=== PATIENT | male | born 1965 | race Caucasian/White ===

== ENCOUNTER → 2016-10-02 | Outpatient (CLI) | payer OTHER ==
[2016-10-02 09:13] LABS: BASOPHIL % 0.3 % (0.0-0.2); BILIRUBIN,URINE NEGATIVE (NEGATIVE); EOSINOPHIL # 0.3 10^3/uL (0.0-0.2); EOSINOPHIL % 3.1 % (0.0-5.0); HEMATOCRIT 42.6 % (37.0-53.0); HEMOGLOBIN 15.1 g/dL (13.9-16.3); LYMPHOCYTES # 2.5 10^3/uL (1.0-4.8); LYMPHOCYTES % 31.4 % (24.0-44.0); MEAN CELL HGB 29.5 pg (26-34); MEAN CELL HGB CONCENTRATION 35.4 g/dL (33-37); MEAN CORP VOLUME 83.2 fL (78-100); MEAN PLATELET VOLUME 8.8 fL (7.8-11.0); MONOCYTES # 0.5 10^3/uL (0.3-0.8); MONOCYTES % 6.3 % (5.0-12.0); NEUTROPHIL # 4.7 10^3/uL (1.8-7.7); NEUTROPHILS % 58.6 % (41.0-85.0); RED CELL DISTRIBUTION WIDTH 12.9 % (11.5-14.5); UROBILINOGEN,URINE NORMAL (NEGATIVE)
[2016-10-02 09:16] LABS: APPEARANCE,URINE CLEAR (CLEAR); UA COLOR YELLOW (YELLOW)
[2016-10-02 09:42] LABS: CALCIUM 9.1 mg/dL (8.4-10.5); CARBON DIOXIDE 28.6 mmol/L (20.0-32)
== END | disposition home or self-care (01) ==
LOC: LAB 08:40
PROVIDERS: ATTEND Internal Medicine
DX: Z13.220 Encounter for screening for lipoid disorders (principal); Z11.4 Encounter for screening for human immunodeficiency virus [HIV]; Z13.29 Encounter for screening for other suspected endocrine disorder; Z72.89 Other problems related to lifestyle; Z87.898 Personal history of other specified conditions
CPT/HCPCS: 36415; 80053; 80061; 81002; 82043; 83036; 85025; 86803

== ENCOUNTER → 2016-10-09 | Outpatient (CLI) | payer OTHER | END | disposition home or self-care (01) | LOC: LAB 11:26 | PROVIDERS: ATTEND Internal Medicine | DX: Z53.21 Procedure and treatment not carried out due to patient leaving prior to being seen by health care provider (principal) ==

== ENCOUNTER 2018-06-25 18:13 | Inpatient (IN) | payer OTHER ==
[~2018-06-25] VITALS: Ht 185.4 cm; Wt 155.1 kg
[2018-06-25 18:45] VITALS: BP 145/104
--- NOTE | 2018-06-25 20:02 | ER.PDOC ---
General Chief Complaint: Requesting Medical Care Stated Complaint: ABD PAIN Time seen by MD: 20:02 Source: patient Exam Limitations: no limitations History of Present Illness Initial Comments 52 Y/O MALE WITH HX OF 24 HRS OF ABD PAIN NOW IN THE RLQ, NO FEVER, NO N/V, NO PAST SAME PAIN , OTHER THEN SIMILAR EPISODE LAST WEEK. LASTED X 5-6 HRS. NO CHEST PAIN, NO FEVER, NO CHANGE IN BOWELS. Timing/Duration: 24 hours Severity/Quality: moderate Radiation: no radiation Associated Symptoms: nausea/vomiting Exacerbated by: nothing Relieved By: nothing Allergies: Coded Allergies: No Known Allergies (Unverified , 06/25/18) Vital Signs First Vital Signs Date Time Temp Pulse Resp B/P (MAP) Pulse Ox O2 Delivery O2 Flow Rate FiO2 06/25/18 20:01 98.4 87 20 98.4 Last Vital Signs Date Time Temp Pulse Resp B/P (MAP) Pulse Ox O2 Delivery O2 Flow Rate FiO2 06/25/18 20:01 98.4 87 20 98.4 Past Medical History Medical History: GERD, hypertension, other Surgical History: tonsillectomy Family History Significant Family History: no pertinent family hx Social History Smoking: non-smoker Alcohol Use: occassionally Drug Use: none Reviewed Nursing Reviewed: Vital Signs, Abn. Noted, Nursing Assessment Constitutional: no symptoms reported EENTM: no symptoms reported Respiratory: no symptoms reported Cardiovascular: no symptoms reported Gastrointestinal: abdominal pain Genitourinary: no symptoms reported Musculoskeletal: no symptoms reported Skin: no symptoms reported Psychiatric/Neurological: no symptoms reported Endocrine: no symptoms reported Hematologic/Lymphatic: no symptoms reported Physical Exam General Appearance: WD/WN, Mild Distress HEENT: PERRL/EOMI, Normal ENT Inspection, TMs Normal, Pharynx Normal Neck: Non-Tender, Full Range of Motion, Supple, Normal Inspection Respiratory: chest non-tender, lungs clear, normal breath sounds, no respiratory distress, no accessory muscle use Cardiovascular: Normal Peripheral Pulses, Regular Rate, Rhythm, No Edema, No Gallop, No JVD, No Murmur Gastrointestinal: Normal Bowel Sounds, No Organomegaly, Rebound, Tenderness, McBurneys point tender Back: Normal Inspection, No CVA Tenderness, No Vertebral Tenderness Extremities: Normal Range of Motion, Non-Tender, Normal Inspection, No Pedal Edema, No Calf Tenderness, Normal Capillary Refill, Pelvis Stable Neurologic/Psychiatric: online journalist II-XII NML as Tested, No Motor/Sensory Deficits, Alert, Normal Mood/Affect, Oriented x 3 Skin: Normal Color, Warm/Dry Lymphatic: No Adenopathy Results/Orders Results/Orders Vital Signs Date Time Temp Pulse Resp B/P (MAP) Pulse Ox O2 Delivery O2 Flow Rate FiO2 06/25/18 20:01 98.4 87 20 98.4 EKG/XRAY/CT/US EKG: NSR EKG Comments: RATE-76, NL EKG Consult/PCP Time Consult/PCP Called: 21:57 Consult/PCP: DR BURNS/DR DE ANDA Reason/Comments: DR BURNS WILL SEE PATIENT IN ED. Course Vitals & review Data Vital Sign - Last 24 Hours 06/25/18 20:01 Temp 98.4 98.4 Pulse 87 Resp 20 Sepsis Infection Criteria Pres: None Departure Time of Disposition: 22:24 Disposition: 09 ADMITTED INPATIENT Impression: Primary Impression: Appendicitis Additional Impression: Abdominal pain Condition: Stable Referrals: COLLEEN PHILLIPS (PCP) PRIMARY CARE PROVIDER Duration or Time Spent with Pa: 15 MIN Problem Qualifiers TAY LATIF DO Jun 25, 2018 20:02
[2018-06-25] MEDS ORDERED: NS 1000ML 1,000 ML IV STA (20:03)
[2018-06-25] MEDS ORDERED: ZOFRAN IV STA (20:03)
[2018-06-25] MEDS ORDERED: DURAMORPH IV STA (20:03)
[2018-06-25 20:20] LABS: BASOPHIL % 0.2 % (0.0-0.2); EOSINOPHIL # 0.2 10^3/uL (0.0-0.2); EOSINOPHIL % 2.5 % (0.0-5.0); HEMOGLOBIN 14.4 g/dL (13.9-16.3); LYMPHOCYTES # 3.1 10^3/uL (1.0-4.8); LYMPHOCYTES % 32.1 % (24.0-44.0); MEAN CELL HGB 29.9 pg (26-34); MEAN CELL HGB CONCENTRATION 35.9 g/dL (33-37); MEAN CORP VOLUME 83.4 fL (78-100); MONOCYTES # 0.6 10^3/uL (0.3-0.8); NEUTROPHIL # 5.6 10^3/uL (1.8-7.7); NEUTROPHILS % 58.9 % (41.0-85.0); RED CELL DISTRIBUTION WIDTH 12.7 % (11.5-14.5); WHITE BLOOD CELL 9.5 10^3/uL (4.5-11.0)
[2018-06-25 20:22] LABS: BILIRUBIN,URINE NEGATIVE (NEGATIVE); UROBILINOGEN,URINE NORMAL (NEGATIVE)
[2018-06-25 20:23] LABS: APPEARANCE,URINE CLEAR (CLEAR); UA COLOR YELLOW (YELLOW)
[2018-06-25 20:37] LABS: CALCIUM 8.9 mg/dL (8.4-10.5); CARBON DIOXIDE 25.4 mmol/L (20.0-32)
[2018-06-25] MEDS ORDERED: NS 1000ML 1,000 ML ONE ×2 (20:57→22:57)
--- NOTE | 2018-06-25 21:05 | NUR ---
MEDS PATIENT REFUSES THE NEED FOR MORPHINE AND ZOFRAN AT THIS TIME PAIN IS TOLERABLE AT REST AND DENIES NAUSEA.
--- NOTE | 2018-06-25 21:38 | DIREP ---
PROCEDURE:CT ABDOMEN/PELVIS W/ CONTRAST COMPARISON:[facility], CT, CT ABD/PELVIS W/ CONTRAST, 11/11/2014, 10:47 AM. INDICATIONS:RLQ ABD PAIN TECHNIQUE:Axial images were created through the abdomen and pelvis with non-ionic intravenous contrast material. No oral contrast was administered. Sagittal and coronal reconstructions were performed from source images. FINDINGS: LOWER CHEST:Mild dependent atelectasis. LIVER: Lobular fluid density lesion predominantly in segment 5 measures 4.5 cm. BILIARY: Gallbladder is unremarkable, no intra or extrahepatic biliary dilation. PANCREAS: Unremarkable. SPLEEN: Normal, nonenlarged. KIDNEYS: No renal mass. No hydronephrosis or collecting system stone identified. ADRENALS: Normal. AORTA/VASCULAR: Normal. No aneurysm. RETROPERITONEUM: No adenopathy or mass. BOWEL/MESENTERY: Suspect small hiatal hernia. No evidence of obstruction. Appendix is mildly dilated in transverse diameter measuring 0.9 cm. There is minimal periappendiceal stranding which is suspicious for acute appendicitis. Notably, the appendix measured 0.4 cm transfer on previous CT. ABDOMINAL WALL: Normal. No mass or hernia. URINARY BLADDER: Inherently limited evaluation of the wall; unremarkable for level of distension. PELVIS: Prostatic tissue present. No adenopathy. BONES: No bony lesion or fracture. OTHER: No free air or fluid. CONCLUSION: 1. Findings concerning for early acute appendicitis. Dictated by: Tanvi Gonzalez MD on 06/25/2018 at 09:25 PM
--- NOTE | 2018-06-25 21:51 | NUR ---
Dr. Jared Argueta on phone with Dr. Coleman
[2018-06-25] MEDS ORDERED: NS 1000ML 1,000 ML IV ONE (22:00)
--- NOTE | 2018-06-25 22:17 | PCM.EKG ---
[facility] Test Date: 2018-06-25 Test Time: 22:15:05 Pat Name: SUKHI WOLFF Department: Room: Gender: M Bridges Supervisor: SOFIA : 1965 Requested By: ERICH ARGUETA Order Number: [id number] Reading MD: Erich Argueta Measurements Intervals [place] Rate: 76 P: 65 AK: 206 QRS: 16 QRSD: 80 T: 32 QT: 384 QTc: 432 Interpretive Statements Normal sinus rhythm with sinus arrhythmia Normal ECG No previous ECG available for comparison Electronically Signed On 06-26-2018 3:25:01 CDT by Erich Argueta Please click the below link to view image of tracing.
--- NOTE | 2018-06-25 22:25 | NUR ---
DR. DR. BURNS AT BEDSIDE.
[2018-06-25] MEDS ORDERED: LOVENOX SQ SCH (22:30)
[2018-06-25] MEDS ORDERED: SODIUM CHLORIDE IRR BAG 1,000 ML ONE (22:35)
[2018-06-25] MEDS ORDERED: ISOTON GENTAMICIN 80 MG/50 ML 50 ML IV ONE (22:35)
[2018-06-25] MEDS ORDERED: SENSORCAINE-MPF 0.25% VIAL ONE (22:36)
[2018-06-25] MEDS ORDERED: SODIUM CHLORIDE IR ONE (22:36)
[2018-06-25] MEDS ORDERED: LOVENOX SQ ONE (22:42)
[2018-06-25] MEDS ORDERED: MEFOXIN ONE (22:51)
[2018-06-25] MEDS ORDERED: DECADRON ONE (22:57)
[2018-06-25] MEDS ORDERED: NEOSTIGMINE ONE (22:58)
[2018-06-25] MEDS ORDERED: DILAUDID ONE (22:58)
[2018-06-25] MEDS ORDERED: TORADOL ONE (22:58)
[2018-06-25] MEDS ORDERED: ZEMURON IV ONE (22:58)
[2018-06-25] MEDS ORDERED: LIDOCAINE 2% VIAL ONE (22:58)
[2018-06-25] MEDS ORDERED: ZOFRAN ONE (22:58)
[2018-06-25] MEDS ORDERED: DIPRIVAN IV ONE (22:59)
[2018-06-25] MEDS ORDERED: QUELICIN ONE (22:59)
[2018-06-25] MEDS ORDERED: SUBLIMAZE ONE (22:59)
[2018-06-25] MEDS ORDERED: NS 250ML 250 ML IV ONE (23:02)
[2018-06-25 23:15] VITALS: BP 149/96
[2018-06-25] MEDS: MEFOXIN 2 GM in NS 100ML 100 ML IV SCH (23:15)
--- NOTE | 2018-06-25 23:15 | NUR ---
SCD SCD given to surgical crew to be applied. Patient wanted to walk to surgery
--- NOTE | 2018-06-25 23:15 | NUR ---
DEPART PATIENT TO SURG. AT THIS TIME
[2018-06-25] MEDS ORDERED: LACTATED RINGERS 1,000 ML IV SCH (23:30)
[2018-06-26] VITALS (11 sets, daily range): BP systolic 118–137; BP diastolic 63–82
[2018-06-26] MEDS ORDERED: DIPRIVAN IV ONE (00:54)
[2018-06-26] MEDS ORDERED: MORPHINE SULFATE IV PRN (01:00)
[2018-06-26] MEDS ORDERED: ZOFRAN IV PRN ×2 (01:00)
[2018-06-26] MEDS ORDERED: GENASYME PO PRN (01:00)
[2018-06-26] MEDS ORDERED: PHENERGAN 12.5 MG in HNS 50ML 50 ML IV PRN (01:00)
[2018-06-26] MEDS ORDERED: DILAUDID IV PRN ×2 (01:00)
[2018-06-26] MEDS ORDERED: TORADOL IV PRN (01:00)
[2018-06-26] MEDS: MORPHINE SULFATE IV PRN ×2 (01:01→11:51)
--- NOTE | 2018-06-26 02:00 | NUR ---
pt up to ambulate in mora ambulate 1/2 the length of the unit x1
[2018-06-26] MEDS ORDERED: NS 100ML 100 ML IV ONE (02:19)
[2018-06-26] MEDS ORDERED: MEFOXIN ONE (02:19)
[2018-06-26] MEDS: LACTATED RINGERS 1,000 ML IV SCH ×3 (02:21→11:16)
--- NOTE | 2018-06-26 03:37 | CNH ---
DATE OF CONSULTATION: CHIEF COMPLAINT: Abdominal pain. HISTORY OF PRESENT ILLNESS: This is a 52-year-old male who reports he had intermittent abdominal pain previously with significant onset yesterday, was initially periumbilical, now some right lower quadrant. He reports since he has come to the ER, he has had nausea without vomiting and chills. His reports he had some low-grade fevers at home. He has had a CT scan that is positive for appendicitis. He denies any sick contacts. He denies any related change in bowel habits. PAST MEDICAL HISTORY: Includes hypertension, Kemp esophagitis and allergies. PAST SURGICAL HISTORY: Includes left hydrocelectomy, tonsils as a child, oral surgery. ALLERGIES: No known drug allergies. HOME MEDICATIONS: Lisinopril, Nexium, and Zyrtec. SOCIAL HISTORY: Negative for tobacco or illicit drug use. Positive for occasional alcohol consumption. He reports he had a flu shot in last year. FAMILY HISTORY: Mother living at age 76. He reports she has multiple illnesses. Father living at age 82, has coronary artery disease. REVIEW OF SYSTEMS: CONSTITUTIONAL: He reports he has got positive history of seasonal allergies. ENDOCRINE: He denies thyroid disease or diabetes. CARDIOVASCULAR: He denies chest pain or trouble breathing. PULMONARY: Does reports he had a slight cough recently with sinus drainage. ABDOMEN: As per HPI. NEUROLOGIC: Denies any history of loss of consciousness, however. He reports in the , he had seizures that stopped in 1996 after he had a complete workup at an outside facility, said none since that time. GENITOURINARY: He denies dysuria, frequency, urgency or nocturia. MUSCULOSKELETAL: He denies any stiffness or swelling, however, he does have some knee pain and hands. PSYCHIATRIC: He denies depression, stress or anxiety. PHYSICAL EXAMINATION: GENERAL: He is alert and oriented, appropriate, 52-year-old male, in no acute distress. He is very cooperative to exam. VITAL SIGNS: Show temperature 98.4, pulse 87, respiratory rate 20, last reported blood pressure in the electronic medical record is 145/104. He stated height to me is 6 feet 1 inch. His stated weight is 320 pounds. Per electronic medical record, his BMI is 43.5. HEENT: Normocephalic, atraumatic with pink mucous membranes. NECK: Supple and soft. Trachea is midline. No JVD, no thyromegaly. HEART: Has regular rate and rhythm. LUNGS: Clear anteriorly bilaterally. ABDOMEN: Bowel sounds are positive, soft. He has a plus/minus Rovsing's. He has focal rebound in the right lower quadrant. EXTREMITIES: Show positive radial pulse bilaterally. Positive dorsal pedal pulse bilaterally. NEUROLOGIC: He has no acute findings. Cranial nerves 2 through 12 are grossly intact. SKIN AND INTEGUMENT: Warm and dry. LABORATORY STUDIES: Show white count 9.5, hemoglobin 14.4, and platelet count 210. Chemistry shows BUN of 20, creatinine 0.90. His electrolytes were essentially normal. Coagulation studies show PT 9.8, PTT 25.7. Urine shows specific gravity 1.020, essentially otherwise negative. CT scan shows changes consistent with a large and inflamed appendix. SURGICAL ASSESSMENT: 1. Right lower quadrant pain with probable appendicitis. 2. Prerenal azotemia, probable dehydration. 3. Morbid obesity, BMI is 43.5. PLAN: 1. The patient is seen and examined. Chart is reviewed. 2. I have discussed with the patient the risks, benefits, alternatives including nonoperative management and he has elected for surgical intervention. We will plan for laparoscopic appendectomy and hopes to speed his recovery. 3. The patient is advised, he will stay overnight for IV antibiotics. Yoni Coleman DO DR: RASHEED/abebe JOB# [id number] CC: Eloy Verde M.D.
--- NOTE | 2018-06-26 04:24 | OPH ---
DATE OF SURGERY: PREOPERATIVE DIAGNOSIS: Right lower quadrant pain, possible appendicitis. POSTOPERATIVE DIAGNOSIS: Acute appendicitis with localized peritonitis. SURGEON: Yoni Coleman DO FOUNDRY SUPERVISOR: OR staff. ANESTHESIA: General by Nasir Liu CRNA plus local used on the field. PROCEDURE PERFORMED: Laparoscopic-assisted appendectomy. SPECIMENS: Appendix to path. ESTIMATED BLOOD LOSS: 11 mL. COUNTS: At the completion of the case, counts were correct per OR staff. DESCRIPTION OF PROCEDURE: The patient is a very pleasant 52-year-old male, known from previous evaluation. Prior to procedure, informed consent was obtained. At the time of procedure, he was taken to the operative suite and placed in supine position. After time-out was completed, general anesthesia was obtained. His abdomen was prepped and draped in normal fashion. Local was used to anesthetize the supraumbilical midline. Incision was created, and a 5-mm trocar was introduced into the abdomen with Endo camera visualization. Once in the abdomen, pneumoperitoneum was induced to the level of 14 mmHg. With camera visualization, two 5-mm trocars were placed in the left lower quadrant, one superiorly and one inferiorly. Attention was directed towards the right lower quadrant. Tip of the appendix appeared normal. The base of the appendix was difficult to identify initially. The mid body of the appendix appeared inflamed and enlarged. The appendix was lifted with mobilization of the viscera to allow exposure. The mesoappendix was divided using a Harmonic scalpel. In the midportion of the appendix, there were noted to be significant lateral peritoneal attachments, which were associatedly inflamed with the appendix and the peritoneal attachments were divided using the Harmonic scalpel. Once the appendix was completely mobilized to its base with good hemostasis noted, two PDS Endoloops were placed on the base of the appendix. The appendix was divided and retained with a grasper. EndoCatch bag was passed into the superior incision, and the appendix was removed. Once the appendix was out, the trocars were reinserted. The area of concern was copiously irrigated, then final irrigation and suctioned. A drain was passed into the inferior trocar site, placed through the pelvis to the right lower quadrant. There was limited visualization of the deep pelvis due to what appeared to be a filling bladder. Once the drain was in its appropriate location, it was secured to point of exit with a nylon suture. Camera was placed, and the remaining left-sided trocar and the supraumbilical trocar was removed. The fascial defect was repaired with a 0 Vicryl using the Jose Guadalupe-Belen device. After the repair was completed, the pneumoperitoneum was reduced; and the remaining trocar was removed with camera visualization through the trocar tract. All 3 trocar sites were localized with a combination of Marcaine and Exparel. Skin incisions were closed with 4-0 Monocryl. The patient was cleaned. Steri-Strips and dressings were applied. Drapes were removed. The patient tolerated this procedure well. There were no acute complications noted at this time. He is currently in the recovery room. He has been awakened by Department of Anesthesia. Yoni Coleman DO DR: RASHEED/abebe JOB# [id number] CC: Eloy Verde M.D.
--- NOTE | 2018-06-26 05:00 | NUR ---
pt up to ambulate in the mora, ambulate 1/2 the length of the unit x1
[2018-06-26] MEDS: MEFOXIN 2 GM in NS 100ML 100 ML IV SCH ×2 (05:21→14:42)
--- NOTE | 2018-06-26 06:23 | NUR ---
REPORT TO NICKY CORNELL
--- NOTE | 2018-06-26 08:35 | NUR ---
DR GOODMAN AT THE BEDSIDE.
[2018-06-26] MEDS ORDERED: PROTONIX IV IV SCH (09:00)
--- NOTE | 2018-06-26 10:07 | NUR ---
DISCHARGE PLAN CM VISITED WITH PATIENT AND CONCERNING PATIENTS DISCHARGE PLAN AND NEED. PATIENT STATED HE LIVES @ HOME WITH HIS AND HE IS INDEPENDENT ON ADLS. PATIENT DOES NOT HAVE DME IN THE HOME OR HAVE A NEED FOR DME. 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 CM WILL CONTINUE TO FOLLOW PATIENT FOR ANY FURTHER DISCHARGE NEEDS. CURRENT GOAL FOR PATIENT IS TO RETURN BACK HOME WITH FAMILY TO ROUTINE CARE UPON DISCHARGE.
[2018-06-26] MEDS: NORCO 5MG PO PRN ×2 (10:08→16:18)
[2018-06-26 11:10] LABS: EOSINOPHIL % 0.1 % (0.0-5.0); HEMOGLOBIN 14.1 g/dL (13.9-16.3); LYMPHOCYTES # 1.1 10^3/uL (1.0-4.8); LYMPHOCYTES % 11.1 % (24.0-44.0); MEAN CELL HGB 29.9 pg (26-34); MEAN CELL HGB CONCENTRATION 36.3 g/dL (33-37); MEAN CORP VOLUME 82.2 fL (78-100); MEAN PLATELET VOLUME 8.8 fL (7.8-11.0); MONOCYTES # 0.2 10^3/uL (0.3-0.8); MONOCYTES % 2.1 % (5.0-12.0); NEUTROPHIL # 8.7 10^3/uL (1.8-7.7); NEUTROPHILS % 86.4 % (41.0-85.0); PLATELET COUNT 224 10^3/uL (150-400); RED CELL DISTRIBUTION WIDTH 12.2 % (11.5-14.5); WHITE BLOOD CELL 10.1 10^3/uL (4.5-11.0)
[2018-06-26 11:25] LABS: CALCIUM 8.6 mg/dL (8.4-10.5); CARBON DIOXIDE 24.5 mmol/L (20.0-32)
[2018-06-26] MEDS ORDERED: EXPAREL 266 MG/20 ML VIAL IJ ONE (12:21)
[2018-06-26] MEDS ORDERED: AUGMENTIN 875-125 TABLET PO STA (14:45)
--- NOTE | 2018-06-26 16:51 | PCM.HP ---
HISTORY & PHYSICAL HISTORY & PHYSICAL DATE OF ADMISSION: CHIEF COMPLAINT: 52 yo male comes in with 24 hours of umbilical abdominal pain that moved to the RLQ. Nausea but no vomiting. Taken to OR last night by Dr. Coleman. Doing very well post/op currently. H&P # [id number] HISTORY OF PRESENT ILLNESS: ALLERGIES: CURRENT MEDICATIONS: PAST MEDICAL HISTORY: SOCIAL HISTORY: FAMILY HISTORY: REVIEW OF SYSTEMS: PHYSICAL EXAMINATION: GENERAL: VITAL SIGNS: HEENT: NECK: LUNGS: HEART: ABDOMEN: EXTREMITIES: NEUROLOGIC: LABORATORY DATA: IMPRESSION: CARE PLAN: WOO GOODMAN MD Jun 26, 2018 16:51
--- NOTE | 2018-06-26 17:00 | NUR ---
DISCHARGED Pt DISCHARGED TO HOME FROM THE HOSPITAL, EDUCATED Pt AND SPOUSE ON DISCHARGE PACKET, SS OF WOUND INFECTION, PIC TAKEN, Pt DISCHARGE WITH ALEX DRAIN PER DR BURNS'S ORDER.IV DC. ASSISTED PT IN WC TO MAIN EXIT BY NURSE BETHANY RUIZ ACCOMPANIED BY Pt'S SPOUSE.
--- NOTE | 2018-06-27 03:37 | HPH ---
ADMIT DATE: 06/25/2018 CHIEF COMPLAINT: Abdominal pain. HISTORY OF PRESENT ILLNESS: This is a 52-year-old male with the past medical history significant for hypertension, GERD and Kemp's esophagus, who presents to the Emergency Department today with complaints of 24 hours of abdominal pain. He states the pain started fairly suddenly around his navel and it was crampy in nature. It was omnipresent, although would vary in intensity. The worst it got was 8/10 and this lasted for a couple of hours and then the pain slowly began radiating to the right lower quadrant. The patient denies any vomiting, but did have nausea. He denies any changes with his bowels. There were no alleviating factors. He had difficulty getting in a comfortable position. He did not have fever in so far as he was checking his temperature, but he did felt chills at home. He did not have much appetite over the last several hours and his pain became progressive, which necessitated his visit to the Emergency Department. PAST MEDICAL HISTORY: 1. Hypertension. 2. GERD. 3. Kemp's esophagus. 4. Obesity. 5. Allergic rhinitis. MEDICATIONS: See admit medication reconciliation form. ALLERGIES: No known drug allergies. PAST SURGICAL HISTORY: 1. Left hemicolectomy. 2. Tonsillectomy. SOCIAL HISTORY: Tobacco, recreational drugs -- none. Alcohol --social. The patient lives in [place] with his family. FAMILY HISTORY: Mother alive at age 76 with multiple medical problems. Father alive at 82 with coronary artery disease. REVIEW OF SYSTEMS: GENERAL: No weakness, fatigue, malaise, subjective fever. CARDIAC: Denies chest pain, orthopnea, PND or palpitations. RESPIRATORY: Denies cough, congestion, shortness of breath. GASTROINTESTINAL: Positive for nausea and abdominal pain as above. No constipation or diarrhea. No vomiting. GENITOURINARY: Denies dysuria, frequency, hematuria or nocturia. HEMATOLOGIC: No easy bleeding or bruising. ENDOCRINE: No recent weight loss or weight gain. NEUROLOGIC: Denies headache, paresthesias or dizziness. MUSCULOSKELETAL: No complaints of bones, muscles, or joints. DERMATOLOGIC: No complaints of skin lesions or rashes. PSYCHIATRIC: Denies depression or anxiety. PHYSICAL EXAMINATION: VITAL SIGNS: Temperature 98.4, pulse 87, respirations 20, blood pressure 145/104, pulse oximeter 95% on room air. GENERAL: This is an obese male, in no acute distress. HEENT: Atraumatic, normocephalic. Sclerae are clear and anicteric. NECK: Soft, supple, normal range of motion. No tenderness, bruits, goiter, mass or adenopathy. LUNGS: Clear to auscultation bilaterally. HEART: Regular rate and rhythm without murmurs, S3 or S4. ABDOMEN: Distended, but soft and nontender other than surgical sites. Surgical wounds are clean, dressed and dry. Positive bowel sounds. EXTREMITIES: Warm and well perfused without evidence of edema, cyanosis or clubbing. NEUROLOGIC: Cranial nerves 2-12 are grossly intact and symmetric. SKIN: Intact. LABORATORY DATA: WBC 10.1, hemoglobin 14.1, hematocrit 38.8, platelets 224, neutrophils 86.4%. Sodium 136, potassium 4.4, chloride 103, CO2 of 24.5, BUN 15, creatinine 0.95, glucose 129. Lipase 191, albumin 3.7, total protein 7.3, ALT 11, AST 11. PT 9.8, PTT 25.7. Urinalysis negative. CT abdomen and pelvis -- "findings concerning for early acute appendicitis." IMPRESSION: 1. Right lower quadrant abdominal pain. 2. Acute appendicitis. 3. Hypertension. 4. Gastroesophageal reflux disease. 5. Kemp's esophagus. 6. Prerenal azotemia. 7. Obesity. PLAN: 1. The patient will be admitted to [facility] for further evaluation and management. 2. The patient is now several hours postop and doing well. Still not passing gas. Pain seems to be well controlled on current pain regimen. Resume home medications. 3. Increase out of bed and ambulation as well as incentive spirometer. 4. Advance diet per Dr. Coleman's recommendations. hSiva Wei MD DR: JHOAN/abebe JOB# [id number]
--- NOTE | 2018-06-27 04:39 | DSH ---
DATE OF DISCHARGE: 06/26/2018 SERVICE: Hospital service by Dr. Verde. CONSULTANTS: Surgery, Dr. Yoni Coleman for Surgery. ADMITTING DIAGNOSES: 1. Acute right lower quadrant abdominal pain. 2. History of hypertension. 3. History of reflux. DISCHARGE DIAGNOSES: 1. Acute appendicitis with focal peritonitis. 2. History of hypertension. 3. History of reflux disease. 4. Morbid obesity, BMI of 45. ADMISSION STATUS: A 52-year-old male who had 1-2 days of abdominal pain was seen in the urgent care center, referred to the ER. He had a CAT scan positive with a convicting exam and he had surgery. The remainder of his history and physical is available in the consults and H and P. HOSPITAL COURSE: The patient was emergently taken for laparoscopic appendectomy, which he tolerated well. He came to the floor with IV fluid, started on diet and had drain. Postoperatively, he became afebrile, tolerated diet, was able to be discharged home. DISCHARGE MEDICATIONS: 1. Augmentin 875 one p.o. b.i.d. x 7 days. 2. Tylenol No. 3 one p.o. q. 6 hours p.r.n. for pain, #20. 3. Tramadol 50 mg 1 p.o. q. 6 hours p.r.n. pain, #24. 4. Promethazine 12.5 mg 1 p.o. q. 8 hours p.r.n. for nausea and vomiting. He was given 12. He is advised to resume his home meds including lisinopril, Nexium [id number] and Zyrtec. Yoni Coleman DO DR: RASHEED/abebe JOB# [id number] CC: Eloy Gee MD MTDNarinder
== END 2018-06-26 17:20 | disposition home or self-care (01) | DRG 342 ==
LOC: ER 18:13 → CMPBEDREQ 23:19 → MS 23:27 → EDPENDDISTM 06-26 17:00 → EDPENDDISDT 06-26 17:00
PROVIDERS: ADMIT Family Medicine; ATTEND Family Medicine
PROC: 0DTJ4ZZ Resection of Appendix, Percutaneous Endoscopic Approach (ICD-10-PCS; principal; 2018-06-26)
DX: K35.30 Acute appendicitis with localized peritonitis, without perforation or gangrene (principal); Z68.42 Body mass index [BMI] 45.0-49.9, adult; E66.01 Morbid (severe) obesity due to excess calories; I10 Essential (primary) hypertension; K21.9 Gastro-esophageal reflux disease without esophagitis; K22.70 Barrett's esophagus without dysplasia; Z82.49 Family history of ischemic heart disease and other diseases of the circulatory system; Z90.49 Acquired absence of other specified parts of digestive tract
CPT/HCPCS: 36415; 74177; 80053; 81002; 83690; 85025; 85610; 85730; 88302; 93005; 99285; A4217; C9113; G0378; J0330; J1100; J1170; J1650; J1885; J2001; J2270; J2405; J2550; J2710; J3010; J3490; J7030; J7050; J7120; Q9965; C9290; J0694

== ENCOUNTER → 2020-03-22 | Outpatient (CLI) | payer OTHER | END | disposition home or self-care (01) | LOC: RT 13:20 | PROVIDERS: ATTEND Physician Assistant | DX: R06.00 Dyspnea, unspecified (principal) | CPT/HCPCS: 94010 ==

== ENCOUNTER → 2020-10-19 | Outpatient (CLI) | payer OTHER ==
[2020-10-19 08:16] LABS: CALCIUM 8.7 mg/dL (8.4-10.5); CARBON DIOXIDE 27.7 mmol/L (20.0-32)
== END | disposition home or self-care (01) ==
LOC: LAB 07:36
PROVIDERS: ATTEND Internal Medicine Cardiovascular Disease
DX: E78.2 Mixed hyperlipidemia (principal); R06.02 Shortness of breath
CPT/HCPCS: 36415; 80048; 80061; 80076; 83880